=== PATIENT | female | born 1980 | race Hispanic/Latino ===

== ENCOUNTER 2017-02-07 19:59 | Emergency (ER) | payer BC ==
[2017-02-07 20:33] VITALS: PULSE 101; RESP 16; TEMP 98.5; O2SAT 100
[2017-02-07 20:38] VITALS: BP 135/98
--- NOTE | 2017-02-07 21:52 | ED PDOC ---
Upper Extremity Pain/Injury Time Seen by Provider: 02/07/17 20:36 Chief Complaint (Nursing): Upper Extremity Problem/Injury Chief Complaint (Provider): middle finger injury History Per: Patient History/Exam Limitations: no limitations Additional Complaint(s): 36yo F sustained right middle finger injury after her ring was caught and hyperextended her finger causing immediate swelling and re with tingling to digit. Pt also has mall bleeding to volar aspect of 34rd finger. Right hand dominant dec ROM due to swelling and pain. tetnatus is uptodate. Past Medical History Reviewed: Historical Data, Nursing Documentation, Vital Signs Vital Signs: Last Vital Signs Temp 98.5 F 02/07/17 20:30 Pulse 101 H 02/07/17 20:30 Resp 16 02/07/17 20:30 BP 135/98 H 02/07/17 20:30 Pulse Ox 100 02/07/17 20:30 - Medical History PMH: No Chronic Diseases - Family History Family History: States: No Known Family Hx - Allergies Allergies/Adverse Reactions: Allergies Allergy/AdvReac Type Severity Reaction Status Date / Time Sulfa (Sulfonamide Allergy URTICARIA Verified 02/07/17 20:30 Antibiotics) Review of Systems ROS Statement: Except As Marked, All Systems Reviewed And Found Negative Musculoskeletal: Positive for: Hand Pain Physical Exam - Reviewed Nursing Documentation Reviewed: Yes Vital Signs Reviewed: Yes - Physical Exam Appears: Positive for: Non-toxic, No Acute Distress, Uncomfortable Head Exam: Positive for: ATRAUMATIC, NORMAL INSPECTION, NORMOCEPHALIC Skin: Positive for: Normal Color, Warm, DRY Extremity: Positive for: Other (right hand: 3rd digit-ring noted broken and constricting. sweling noted to digit bursing noted to digit pin noted good pulses noted good cap refil noted abrasion to volar asepct of finger no active bleeding. ) Neurologic/Psych: Positive for: Alert, Oriented - ECG O2 Sat by Pulse Oximetry: 100 - Radiology X-Ray: Interpreted by Nc X-Ray Interpretation: No Acute Disease - Progress ED Course And Treament: pt provided consent to remove ring via ring cutter pt will get xray pt offered pain control but declined. Medical Decision Making Medical Decision Making: wound cleaned and bandage placed pt given finger splint for support and advised to f/u with hand spec. Disposition - Clinical Impression Clinical Impression: Finger injury, Laceration - Patient ED Disposition Is Patient to be Admitted: No Counseled Patient/Family Regarding: Studies Performed, Diagnosis, Need For Followup - Disposition Referrals: Yazan Haque MD [Medical Doctor] - Disposition: Routine/Home Disposition Time: 22:05 Condition: STABLE Instructions: Obdulia Michaud (ED)
--- NOTE | 2017-02-08 11:56 | RAD ---
PROCEDURE: Right Hand Radiographs. HISTORY: trauma attn 5th digit COMPARISON: None available. FINDINGS: BONES: No acute displaced fracture. JOINTS: No dislocation. SOFT TISSUES: Soft tissue swelling. No evidence of radiopaque foreign body. OTHER FINDINGS: None. IMPRESSION: Soft tissue swelling. No acute displaced fracture, dislocation, or significant joint effusion identified. If symptoms persist, or if there is continued clinical concern, x-ray follow-up in 7-10 days should be considered.
== END 2017-02-07 22:42 | disposition home or self-care (01) ==
LOC: H.ER 19:59
DX: S69.91XA Unspecified injury of right wrist, hand and finger(s), initial encounter (principal); X58.XXXA Exposure to other specified factors, initial encounter; Y93.9 Activity, unspecified; Y92.9 Unspecified place or not applicable; S61.212A Laceration without foreign body of right middle finger without damage to nail, initial encounter